=== PATIENT | male | born 1990 | race Two or more races ===

== ENCOUNTER 2018-01-17 19:55 | Emergency (ER) | payer MEDICAID ==
[~2018-01-17] VITALS: Ht 185.4 cm; Wt 72.6 kg
[2018-01-17] MEDS ORDERED: NKM (20:03)
--- NOTE | 2018-01-17 20:54 | Diagnostic Imaging Report ---
EXAM: XR Left Ankle Complete, 3 or More Views CLINICAL HISTORY: PAIN TECHNIQUE: Frontal, lateral and oblique views of the left ankle. COMPARISON: No relevant prior studies available. FINDINGS: Bones/joints: Unremarkable. No acute fracture. No dislocation. Soft tissues: Lateral swelling. No radiopaque foreign body. IMPRESSION: No fracture or dislocation.
[2018-01-17] MEDS ORDERED: IBUPROFEN600 MG ORAL (20:57)
[2018-01-17 21:13] VITALS: BP 138/81
--- NOTE | 2018-01-17 22:32 | Emergency Room Report ---
History of Present Illness General Chief Complaint: Lower Extremity Injury Source: Patient Present Illness HPI Patient is a 27 year-old male presented after increased left ankle pain after injury while playing basketball. Patient had reported having inverted his ankle. He stated that he felt a pop. He denied any prior ankle sprains. He denied any other locations of pain. Patient reported having been able to place some weight on his leg. Allergies: Coded Allergies: No Known Allergies (Unverified , 01/17/18) Patient History Past Medical History: see triage record Reviewed Nursing Documentation: PMH: Agreed; PSxH: Agreed Nursing Documentation-PMH Past Medical History: No Stated History Review of Systems All Other Systems: negative except mentioned in HPI Physical Exam Vital Signs Date Time Temp Pulse Resp B/P (MAP) Pulse Ox O2 Delivery O2 Flow Rate FiO2 01/17/18 19:58 97.7 76 16 138/81 98 Room Air 97.7 General Appearance: well appearing, no apparent distress, alert, GCS 15 Head: normocephalic, atraumatic ENT: hearing grossly normal, normal voice Neck: full range of motion, supple Respiratory: no respiratory distress, speaking full sentences Musculoskeletal: no calf tenderness, decreased range of mation, inflammation - left lateral malleolus, swelling Neurologic: normal inspection, alert, oriented x3, responsive, cigarette catcher III-XII nml as tested, normal gait Psychiatric: mood/affect normal Skin: no rash Medical Decision Making Diagnostic Impression: Primary Impression: Left ankle sprain ER Course Patient presented for ankle pain. Differential diagnosis included was not limited to sprain, fracture, dislocation, cellulitis, vascular insufficiency. X -ray imaging of the ankle was ordered. The x-ray of the left ankle 3 views interpreted by me showed normal bony alignment without evident fracture and soft tissue swelling. Indication pain. The patient is advised to follow up with primary care doctor in 1-2 days. Patient is advised to return if any worsening condition or if any changes in status that are concerning. This report is dictated with Yhat helper/driver software which may occasionally lead to discrepancies related to use of this software. Other X-Ray Diagnostic Results Other X-Ray Diagnostic Results : # of Views/Limited Vs Complete: 3 View Indication: Pain EP Interpretation: Yes Interpretation: no dislocation, no fractures Impression: Other - soft tissue swelling, no fracture Electronically Signed by: Electronically signed by Dr. Montez Umesh M.D. Last Vital Signs Date Time Temp Pulse Resp B/P (MAP) Pulse Ox O2 Delivery O2 Flow Rate FiO2 01/17/18 21:13 97.7 16 138/81 98 Room Air 97.7 01/17/18 19:58 76 Disposition: HOME, SELF-CARE Condition: Stable Scripts Ibuprofen* (MOTRIN*) 600 Mg Tablet 600 MG ORAL Q8H PRN for For Pain, #30 TAB 0 Refills Prov: Montez Calvo MD 01/17/18 Referrals: NOT CHOSEN IPA/,REFERRING (PCP) Patient Instructions: Ankle Sprain Montez Calvo MD Jan 17, 2018 22:32
== END 2018-01-17 21:20 | disposition home or self-care (01) ==
LOC: EMR 20:16
DX: S93.402A Sprain of unspecified ligament of left ankle, initial encounter (principal); X50.1XXA Overexertion from prolonged static or awkward postures, initial encounter; Y93.67 Activity, basketball; Y92.9 Unspecified place or not applicable
CPT/HCPCS: 99283